=== PATIENT | male | born 1990 | race Caucasian/White ===

== ENCOUNTER 2016-07-07 20:57 | Emergency (ER) | payer BC ==
[2016-07-07] MEDS ORDERED: TETANUS,DIPHTHERIA,PERTUSSIS 1 EA SYG IM ONE (21:18)
--- NOTE | 2016-07-07 21:31 | ED.PDOC ---
History of Present Illness - General Chief Complaint: Upper Extremity Injury Stated Complaint: wound left middle finger Time Seen by Provider: 07/07/16 21:15 Source: patient, RN notes reviewed Exam Limitations: no limitations - History of Present Illness Initial Comments: He stated that while lifting entertainment center it slipped off and pinned his middle finger left on the furniture which happened at home. Occurred: just prior to arrival Pain - Upper Extremity: severe: Hand, left Method of Injury: other - finger pinned by entertainment set Allergies/Adverse Reactions: Allergies NO KNOWN ALLERGY Allergy (Verified 07/07/16 21:15) Home Medications: Ambulatory Orders Acetaminophen W/ Codeine [Tylenol w/Codeine 300-30 mg] 1 tab PO TID PRN #10 tab 07/07/16 Cephalexin 1,000 mg PO BID #20 cap 07/07/16 Review of Systems - Review of Systems Constitutional: States: no symptoms reported EENTM: States: no symptoms reported Respiratory: States: no symptoms reported Cardiology: States: no symptoms reported Gastrointestinal/Abdominal: States: no symptoms reported Genitourinary: States: no symptoms reported Musculoskeletal: States: see HPI Skin: States: other - superficial laceration distal phalanx left middle finger Past Medical History (General) - Patient Medical History Hx Seizures: No Hx Hypertension: No Hx Diabetes: No Family Medical History - Family History Mother Family History: No Known Physical Exam - Physical Exam General Appearance: Alert, No apparent distress Eyes, Ears, Nose, Throat Exam: PERRL/EOMI, normal ENT inspection, TMs normal, pharynx normal Neck: full range of motion, supple, normal inspection Cardiovascular/Respiratory: regular rate, rhythm, no M/R/G, normal peripheral pulses, no JVD, no respiratory distress Abdominal Exam: non-tender, no organomegaly Back Exam: no CVA tenderness, no vertebral tenderness Shoulder Exam: non-tender, no evidence of injury Elbow/Forearm Exam: non-tender, no evidence of injury Wrist Exam: non-tender, no evidence of injury Hand Exam: bone tenderness, laceration - superficial left middle finger, nail injury - distal phalanx mddle finger with partial nail avulsion Neuro/Tendon: normal sensation, normal motor functions, responds to pain, no evidence tendon injury Mental Status: alert, oriented x 3 Skin Exam: normal color, warm/dry Progress - EKG/XRAY/CT XRAY: left middle finger-no fracture noted Departure - Departure Clinical Impression: Crushing injury of left middle finger Qualifiers: Encounter type: initial encounter Qualifier Code: (S67.193A) Crushing injury of left middle finger, initial encounter Nail avulsion, finger Qualifiers: Encounter type: initial encounter Qualifier Code: (S61.309A) Unspecified open wound of unspecified finger with damage to nail, initial encounter Time of Disposition: 22:38 Disposition: Discharge to Home or Self Care Condition: Good Instructions: DI for Nail Avulsion Injury Prescriptions: Cephalexin 1,000 mg PO BID #20 cap Acetaminophen W/ Codeine [Tylenol w/Codeine 300-30 mg] 1 tab PO TID PRN #10 tab PRN Reason: Pain Home Medications: Ambulatory Orders Acetaminophen W/ Codeine [Tylenol w/Codeine 300-30 mg] 1 tab PO TID PRN #10 tab 07/07/16 Cephalexin 1,000 mg PO BID #20 cap 07/07/16 Additional Instructions: RETURN TO EMERGENCY ROOM NEEDED
[2016-07-07] MEDS ORDERED: CEPHALEXIN MONOHYDRATE 500 MG CAP PO ONE ×2 (21:42→22:08)
[2016-07-07 21:52] VITALS: TEMP 98.2
[2016-07-07] MEDS ORDERED: CEPHALEXIN MONOHYDRATE 500 MG CAP ONE (22:09)
[2016-07-07] MEDS ORDERED: HYDROCOD/APAP 7.5/325 (ER DISP) #3 TAB PO ONE (22:42)
[2016-07-07 22:53] VITALS: BP 159/91; O2SAT 97
--- NOTE | 2016-07-08 00:22 | RAD ---
EXAM DESCRIPTION: Fingers,Left CLINICAL HISTORY: laceration to middle finger COMPARISON: None FINDINGS: AP, lateral and oblique views of the third digit of the left hand were submitted. There is no discrete acute fracture or dislocation. Bone mineralization is within normal limits. There is no radiopaque foreign body material IMPRESSION: No acute fracture or dislocation Electronically signed by: Giovanni Ackerman MD 07/07/2016 10:29 PM PRODUCTION HELPER
--- NOTE | 2016-07-30 23:52 | RAD ---
EXAM DESCRIPTION: Fingers,Left CLINICAL HISTORY: laceration to middle finger COMPARISON: None FINDINGS: AP, lateral and oblique views of the third digit of the left hand were submitted. There is no discrete acute fracture or dislocation. Bone mineralization is within normal limits. There is no radiopaque foreign body material IMPRESSION: No acute fracture or dislocation Electronically signed by: Giovanni Ackerman MD 07/07/2016 10:29 PM MEDICAL RESEARCH ASSOCIATE
== END 2016-07-07 22:53 | disposition home or self-care (01) ==
LOC: ER 20:57 → EDBD 20:57 → ER 22:53
DX: S67.193A Crushing injury of left middle finger, initial encounter (principal); S61.309A Unspecified open wound of unspecified finger with damage to nail, initial encounter; Z23 Encounter for immunization; W23.0XXA Caught, crushed, jammed, or pinched between moving objects, initial encounter; Y92.009 Unspecified place in unspecified non-institutional (private) residence as the place of occurrence of the external cause